=== PATIENT | female | born 1970 | race Caucasian/White ===

== ENCOUNTER → 2019-07-15 | Day surgery (SDC) | payer OTHER ==
[~2019-07-15] MED LIST: Lactated Ringers 1,000 ML IV SCH; Propofol 200 MG/20 ML SDV IV ONE
--- NOTE | 2019-07-15 12:23 | OR ---
DATE OF OPERATION: 07/15/2019 PREOPERATIVE DIAGNOSIS: SCREENING COLONOSCOPY. POSTOPERATIVE DIAGNOSIS: SCREENING COLONOSCOPY. SURGEON: Star Nunn MD PROCEDURE: FULL-LENGTH COLONOSCOPY. ANESTHESIA: MAC via FULL STACK DEVELOPER. COMPLICATIONS: None. SPECIMEN: None. FINDINGS: Normal full-length colonoscopy. RECOMMENDATIONS: Followup colonoscopy every 10 years. INDICATIONS: The patient was seen for routine physical and was recommended she have a routine screen for colon cancer given her age. She elected to proceed with colonoscopy. DESCRIPTION OF PROCEDURE: The patient was prepped and draped, placed in the left lateral decubitus position. A lubricated Olympus colonoscope was inserted and with ease advanced to the cecum. Direct visualization of the ileocecal valve and appendiceal orifice was accomplished. The bowel prep was adequate. Upon withdrawal of the scope, throughout the entire length of the colon, I could find no signs of any polyps, mass, ulceration, or bleeding sites. No vascular abnormalities or signs of colitis. No significant diverticular disease. Rectal vault was benign. Retroflexion showed no anal lesions, no perianal lesions. Air was then suctioned, scope removed without complication. SMA/GEOFF /[id number]
== END ==
LOC: CC.SDS 10:13
PROVIDERS: ATTEND Family Medicine
DX: Z12.11 Encounter for screening for malignant neoplasm of colon (principal); E66.9 Obesity, unspecified; Z88.1 Allergy status to other antibiotic agents; Z98.84 Bariatric surgery status; Z68.36 Body mass index [BMI] 36.0-36.9, adult
CPT/HCPCS: G0121; J2704; J7120

== ENCOUNTER 2021-03-12 15:34 | Emergency (ER) | payer OTHER ==
[2021-03-12] MEDS: Diphtheria,Pertussis(Acell),Tetanus Vaccine 0.5 ML Syringe IM ONE (15:51)
--- NOTE | 2021-03-12 16:03 | EDM.PDOC ---
ED HPI GENERAL MEDICAL PROBLEM - General Chief Complaint: General Stated Complaint: SLICED OPEN LT RING FINGER Time Seen by Provider: 03/12/21 15:45 Source of Information: Reports: Patient History Limitations: Reports: No Limitations - History of Present Illness INITIAL COMMENTS - FREE TEXT/NARRATIVE: Leo is a 51 yo female who presents to the ED with concerns of a cut to the left index finger. States she was cutting meat in the deli at the local grocery store when it occurred. States unknown last tetanus status. Able to still bend her finger. - Related Data Allergies Allergy/AdvReac Type Severity Reaction Status Date / Time Cephalosporins Allergy Anaphylactic Verified 03/12/21 15:41 Shock Home Meds: Home Meds Ferrous Sulfate [Iron] 325 mg PO DAILY 06/25/18 [History] Multivitamin [Multivitamins] 1 cap PO DAILY 07/23/18 [History] Cholecalciferol (Vitamin D3) [Vitamin D3] 2,000 unit PO DAILY 07/14/19 [History] Calcium Carbonate/Vitamin D3 [Caltrate-600 with Vit D Tab] 1 each PO DAILY 03/12/21 [History] Past Medical History - Past Health History Medical/Surgical History: Denies Medical/Surgical History Social & Family History - Family History Family Medical History: No Pertinent Family History - Tobacco Use Tobacco Use Status *Q: Never Tobacco User ED ROS GENERAL - Review of Systems Review Of Systems: Comprehensive ROS is negative, except as noted in HPI. ED EXAM, GENERAL - Physical Exam Exam: See Below Exam Limited By: No Limitations General Appearance: Alert, No Apparent Distress Extremities: Normal Range of Motion, Normal Capillary Refill Neurological: No Motor/Sensory Deficits Skin Exam: Wound/Incision (1.5cm superficial laceration to the left index finger, dorsum of PIP. Mild bleeding noted. ) ED GENERAL MEDICAL PROCEDURES - Laceration/Wound Repair Left Proximal Digit - 4th (Ring) Lac/wound length in cm: 1.5 Appearance: Superficial Distal NVT: Neuro & Vascular Intact, No Tendon Injury Skin Prep: Chlorhexidine (Hibiciens) Exploration/Debridement/Repair: Wound Explored, In a Bloodless Field, Explored to Base Closed with: Dermabond Sterile Dressing Applied: Nurse Tetanus Status Addressed: Yes Complications: No Course - Vital Signs Last Recorded V/S: Last Vital Signs Temp 97.6 F 03/12/21 15:42 Pulse 76 03/12/21 15:42 Resp 16 03/12/21 15:42 BP 147/84 H 03/12/21 15:42 Pulse Ox 98 03/12/21 15:42 - Orders/Labs/Meds Orders: Active Orders 24 hr Category Date Time Status Vaccines to be Administered [RC] PER UNIT ROUTINE Care 03/12/21 15:45 Active Meds: Medications Discontinued Medications Generic Name Dose Route Start Last Admin Trade Name Freq PRN Reason Stop Dose Admin Diphtheria/Tetanus/Acell Pertussis 0.5 ml 03/12/21 15:45 03/12/21 15:51 Diphtheria,Pertussis(Acell),Tetanus Vaccine 0.5 Ml Syringe IM 03/12/21 15:46 0.5 ml .ONCE ONE Administration Departure - Departure Time of Disposition: 16:01 Disposition: Home, Self-Care 01 Clinical Impression: Laceration of finger Qualifiers: Encounter type: initial encounter Finger: ring finger Damage to nail status: without damage Foreign body presence: without foreign body Laterality: left Qualified Code(s): S61.215A - Laceration without foreign body of left ring finger without damage to nail, initial encounter - Discharge Information Instructions: Laceration Care, Adult, [id number] Additional Instructions: 1) Keep finger in splint for 24-48hrs 2) Keep wound clean and dry for 48 hours, no soaking 3) Watch for any signs of infection. If any concerns at all recommend reevaluation 4) Tdap updated today. 5) Blood pressure slightly elevated, recommend rechecking with primary in the next week or two. Sepsis Event Note (ED) - Evaluation Sepsis Screening Result: No Definite Risk - Focused Exam Vital Signs: Vital Signs Temp Pulse Resp BP Pulse Ox 03/12/21 15:42 97.6 F 76 16 147/84 H 98 - Problem List & Annotations (1) Laceration of finger SNOMED Code(s): 727758401 Code(s): S61.219A - LACERATION W/O FB OF UNSP FINGER W/O DAMAGE TO NAIL, INIT Status: Acute Qualifiers: Encounter type: initial encounter Finger: ring finger Damage to nail status: without damage Foreign body presence: without foreign body Laterality: left Qualified Code(s): S61.215A - Laceration without foreign body of left ring finger without damage to nail, initial encounter - My Orders Last 24 Hours: My Active Orders 03/12/21 15:45 Vaccines to be Administered [RC] PER UNIT ROUTINE - Assessment/Plan Last 24 Hours: My Active Orders 03/12/21 15:45 Vaccines to be Administered [RC] PER UNIT ROUTINE Plan: Discussed findings with Jolette. Patient elected to proceed with Dermabond. NO complications with closure. Tdap addressed and updated today. See additional instructions.
== END 2021-03-12 16:26 | disposition home or self-care (01) ==
LOC: CC.ED 15:34
DX: S61.215A Laceration without foreign body of left ring finger without damage to nail, initial encounter (principal); Z23 Encounter for immunization; Z88.1 Allergy status to other antibiotic agents; W26.8XXA Contact with other sharp object(s), not elsewhere classified, initial encounter; Y92.512 Supermarket, store or market as the place of occurrence of the external cause
CPT/HCPCS: 12001; 90471; 90715; 99282-25

== ENCOUNTER 2022-04-27 19:45 | Emergency (ER) | payer OTHER ==
[2022-04-27] MEDS: Ketorolac 60 MG/2 ML SDV IM ONE (20:02)
[2022-04-27] MEDS: Take Home: Cyclobenzaprine 10 MG Tab, 4 Tab Pack PO ONE (21:06)
== END 2022-04-27 21:13 | disposition home or self-care (01) ==
LOC: CC.ED 19:45
DX: M54.42 Lumbago with sciatica, left side (principal); Z88.8 Allergy status to other drugs, medicaments and biological substances
CPT/HCPCS: 81001; 87086; 96372; 99283; A9270-GY; J1885

== ENCOUNTER 2022-07-19 05:09 | Emergency (ER) | payer OTHER ==
[2022-07-19] MEDS ORDERED: Ketorolac 30 MG/ML SDV IM ONE (05:58)
[2022-07-19] MEDS ORDERED: Cyclobenzaprine 10 MG Tab PO ONE (05:59)
== END 2022-07-19 06:20 | disposition home or self-care (01) ==
LOC: CC.ED 05:09
DX: M25.511 Pain in right shoulder (principal); M25.512 Pain in left shoulder; M54.6 Pain in thoracic spine; M25.552 Pain in left hip; Z88.1 Allergy status to other antibiotic agents; Z88.8 Allergy status to other drugs, medicaments and biological substances
CPT/HCPCS: 96372; 99283; 99284; A9270-GY; J1885

== ENCOUNTER 2023-03-24 20:20 | Emergency (ER) | payer OTHER ==
[2023-03-24] MEDS: Take Home: Cyclobenzaprine 10 MG Tab, 4 Tab Pack PO ONE (20:46)
== END 2023-03-24 21:00 | disposition home or self-care (01) ==
LOC: CC.ED 20:20
DX: M62.830 Muscle spasm of back (principal); M54.6 Pain in thoracic spine; Z79.899 Other long term (current) drug therapy; Z88.1 Allergy status to other antibiotic agents
CPT/HCPCS: 99283; A9270-GY

== ENCOUNTER 2023-05-12 09:47 | Emergency (ER) | payer OTHER ==
[2023-05-12] MEDS ORDERED: Iopamidol 755 Mg/ML 100 ML Bottle IVPUSH ONE (10:08)
[2023-05-12] MEDS: Sodium Chloride 0.9% 1,000 ML IV ONE (10:28)
[2023-05-12] MEDS: cefTRIAXone 2 GM Vial IVPUSH ONE (10:55)
[2023-05-12 11:06] LABS: BASOPHILS ABSOLUTE AUTO 0.03 10^3/uL (0.00-0.50); BASOPHILS PERCENT AUTO 0.6 % (0-1); EOSINOPHILS ABSOLUTE AUTO 0.01 10^3/uL (0.00-1.50); EOSINOPHILS PERCENT AUTO 0.2 % (0-6); HEMATOCRIT 37.2 % (37.0-47.0); HEMOGLOBIN 12.7 g/dL (12.0-16.0); IMMATURE GRAN ABSOLUTE AUTO 0.01 10^3/uL (0.00-0.49); IMMATURE GRAN PERCENT AUTO 0.2 % (0.0-4.9); LYMPHOCYTES ABSOLUTE AUTO 0.66 10^3/uL (0.60-5.00); LYMPHOCYTES PERCENT AUTO 14.2 % (24-44); MEAN CORPUSCULAR HEMOGLOBIN 29.3 pg (27.0-32.0); MEAN CORPUSCULAR HGB CONC 34.1 g/dL (32.0-36.0); MEAN CORPUSCULAR VOLUME 85.9 fL (83.0-97.0); MONOCYTES ABSOLUTE AUTO 0.44 10^3/uL (0.00-1.50); MONOCYTES PERCENT AUTO 9.5 % (0-10); NEUTROPHILS PERCENT AUTO 75.3 % (41-71); PLATELET COUNT,PLT 265 10^3/uL (150-400); RED BLOOD CELL COUNT 4.33 x10^6/uL (4.00-5.50); WHITE BLOOD CELL COUNT,WBC 4.7 10^3/uL (4.0-11.0)
[2023-05-12 11:21] LABS: LACTIC ACID 0.8 mmol/L (0.4-2.0)
[2023-05-12 11:24] LABS: INR 1.02 (0.92-1.18); PROTHROMBIN TIME 10.5 SEC (9.3-11.3); PTT,PARTIAL THROMBOPLSTIN TIME 23.8 SEC (20.0-30.0)
[2023-05-12 11:28] LABS: ALANINE AMINOTRANSFERASE,ALT 43 U/L (12-78); ALBUMIN 3.5 g/dL (3.4-5.0); ALKALINE PHOSPHATASE 70 U/L (46-116); ASPARTATE AMNIOTRANSFERASE,AST 29 U/L (15-37); BILIRUBIN TOTAL 0.6 mg/dL (0.0-1.0); BLOOD UREA NITROGEN,BUN 7 mg/dL (7-18); CALCIUM 8.7 mg/dL (8.4-10.1); CARBON DIOXIDE,CO2 24 mmol/L (21-32); CHLORIDE,CL 101 mEq/L (98-106); CREATININE 0.7 mg/dL (0.6-1.0); EST CRCL DRUG DOSING (CG) 92.68 mL/min; GLUCOSE RANDOM 102 mg/dL (75-99); MAGNESIUM 1.9 mg/dL (1.8-2.4); POTASSIUM,K 3.1 mEq/L (3.5-5.0); PROTEIN TOTAL,TP 7.1 g/dL (6.4-8.2); SODIUM,NA 139 mEq/L (136-145)
[2023-05-12 11:29] LABS: APPEARANCE,URINE CLEAR (CLEAR); BILIRUBIN,URINE NEGATIVE (NEGATIVE); COLOR,URINE YELLOW (YELLOW); GLUCOSE,URINE NEGATIVE (NEGATIVE); KETONES,URINE 40 mg/dL (NEGATIVE); LEUKOCYTE ESTERASE,URINE NEGATIVE (NEGATIVE); NITRITE,URINE NEGATIVE (NEGATIVE); OCCULT BLOOD,URINE TRACE-INTACT (NEGATIVE); PH,URINE 7.5 (4.5-8.0); PROTEIN,URINE NEGATIVE (NEGATIVE); UROBILINOGEN,URINE 0.2 EU/dL (0.2-1.0)
[2023-05-12 11:29] LABS: ESTIMATED GFR 103 mL/min (>=60); ETHANOL BLOOD MEDICAL < 3 mg/dL (0-3)
[2023-05-12 11:38] LABS: RBC,URINE 0-5 /HPF (0-5); WBC,URINE 0-5 /HPF (0-5)
[2023-05-12 11:39] LABS: BACTERIA,URINE OCCASIONAL /HPF (NOT SEEN); EPITHELIAL CELLS,URINE OCCASIONAL /HPF (NOT SEEN)
== END 2023-05-12 11:45 ==
LOC: CC.ED 09:47
DX: G93.40 Encephalopathy, unspecified (principal); I63.9 Cerebral infarction, unspecified; Z88.1 Allergy status to other antibiotic agents; Z88.8 Allergy status to other drugs, medicaments and biological substances
CPT/HCPCS: 36415; 70496; 70498; 80053; 80307; 81001; 83605; 83735; 84484; 85025; 85610; 85730; 93005; 93010; 96365; 96375; 99285-25; 99291; J0133; J0696; J7030; J7050; U0002